=== PATIENT | female | born 1995 | race Caucasian/White ===

== ENCOUNTER 2022-07-31 19:35 | Emergency (ER) | payer OTHER, SELFPAY ==
--- NOTE | ~2022-07-31 | XR_ITS ---
EXAMINATION: XR chest 2V DATE: 07/31/2022 20:25 INDICATION: Shortness of breath TECHNIQUE: PA and lateral views of the chest were obtained. COMPARISON: Chest radiograph dated 03/07/2020 FINDINGS: The lungs remain clear with no focal airspace opacities, pulmonary edema, pleural effusion or pneumot horax. The cardiomediastinal silhouette is normal. Mild thoracic spondylosis. IMPRESSION: 1. No acute cardiopulmonary disease. Reviewed, dictated and finalized at location A.
[2022-07-31 19:51] VITALS: BP 144/102; PULSE 104; RESP 20; TEMP 36.5; O2SAT 97
--- NOTE | 2022-07-31 19:56 | ECG_ITS ---
Measurements Intervals [place] Rate: 82 P: 11 AK: 174 QRS: 24 QRSD: 92 T: 39 QT: 335 QTc: 392 Interpretive Statements SINUS RHYTHM LOW QRS VOLTAGE IN PRECORDIAL LEADS INCOMPLETE RIGHT BUNDLE BRANCH BLOCK BASELINE ARTIFACT- II, III, AVR, AVL, AVF, V1-V6 BORDERLINE ECG NO PREVIOUS ECG AVAILABLE FOR COMPARISON Electronically Signed On 08-01-2022 6:50:51 CDT by Raj Ann D.O.
[2022-07-31 22:16] LABS: Basophils Absolute Auto 0.1 K/mm3 (0.0-0.1); Basophils Percent Auto 0.6 % (0.2-1.2); Eosinophils Absolute Auto 0.4 K/mm3 (0-0.3); Eosinophils Percent Auto 4.6 % (0-4.4); Hematocrit 41.1 % (37.0-47.0); Hemoglobin 13.5 g/dL (12.0-15.0); Immature Granulocyte Absolute 0.03 K/mm3 (0.00-0.031); Immature Granulocyte Percent A 0.4 % (0-0.5); Lymphocytes Percent Auto 29.2 % (18.3-44.2); Mean Corpuscular HGB Conc 32.8 g/dl (32-36); Mean Corpuscular Hemoglobin 29.5 pg (26-34); Mean Corpuscular Volume 89.7 fl (80-100); Mean Platelet Volume 9.2 fl (7.4-10.4); Monocytes Absolute Auto 0.5 K/mm3 (0.1-0.6); Monocytes Percent Auto 6.1 % (2.6-8.5); Neutrophils Absolute Auto 4.9 K/mm3 (1.3-6.7); Neutrophils Percent Auto 59.1 % (45.5-73.1); Platelet Count Result 358 k/mm3 (150-375); Red Blood Count 4.58 M/mm3 (4.2-5.4); Red Cell Distribution Width 12.8 % (11.5-14.5); White Blood Count 8.2 K/mm3 (4.5-10.0)
[2022-07-31 22:24] LABS: Alanine Aminotransferase 22 U/L (6-35); Albumin Level 4.7 g/dL (3.5-5.1); Alkaline Phosphatase 75 U/L (38-126); Anion Gap 4 mmol/L (8-16); Aspartate Amino Transferase 32 U/L (14-36); Bilirubin,Total 0.6 mg/dL (0.2-1.3); Blood Urea Nitrogen 12 mg/dL (7-17); Calcium 8.6 mg/dL (8.4-10.2); Carbon Dioxide 27 mmol/L (22-30); Chloride 105 mmol/L (98-107); Estimated CRCL calculation 207 ml/min; Estimated Glomerular Filt Rate > 60; Glucose 106 mg/dL (65-110); Potassium 4.1 mmol/L (3.4-5.0); Sodium 136 mmol/L (137-145)
[2022-07-31 22:57] VITALS: BP 158/103; PULSE 92; RESP 20; TEMP 36.2; O2SAT 95
[2022-08-01] VITALS (17 sets, daily range): BP systolic 108–152; BP diastolic 75–102; PULSE 80–86; RESP 18–22; O2SAT 93–96
--- NOTE | 2022-08-01 01:14 | PC.NURSE ---
Covid and flu swab completed and sent to lab
[2022-08-01] MEDS: IPRATROPIUM BR 0.02% INH SOLN 0.5 MG/2.5 ML VIAL INHALATION (01:21)
[2022-08-01] MEDS: ALBUTEROL SULFATE NEB 2.5 MG/3 ML INH 5 MG INHALATION (01:21)
[2022-08-01] MEDS: methylPREDNISolone SOD SUCC 125 MG VIAL IV PUSH (01:29)
--- NOTE | 2022-08-01 01:48 | ED.SOB ---
HPI - SOB/Dyspnea General Chief Complaint: Shortness of Breath/Dyspnea Stated Complaint: SOB Time Seen by Provider: 08/01/22 01:05 Source: patient Mode of arrival: ambulatory Limitations: no limitations History of Present Illness HPI Narrative: This is a 26 year old female that presents to the ER for cold symptoms present over the last couple of days. Reports fever, cough, congestion. Reports she has started to become short of breath. Denies chest pain. Related Data Allergies Allergy/AdvReac Type Severity Reaction Status Date / Time No Known Allergies Allergy Mild Verified 07/31/22 19:54 Review of Systems Review of Systems: CONSTITUTIONAL: Denies fever CARDIOVASCULAR: Denies chest pain, or edema. RESPIRATORY: Reports cough and dyspnea. All systems reviewed & are unremarkable except as noted in HPI and below PMFSH Past Medical History Medical History (Updated 08/01/22 @ 02:33 by Shayy Palumbo PA-C) Gastroenteritis SBO (small bowel obstruction) Surgical History Surgical History No pertinent past surgical history Family History Family History Grandparent Diabetes mellitus Colon cancer Social History Social History Smoking packs per day: 0.5 Smoking cigarettes per day: 10.0 Years smoked: 6 Smoking pack-years: 3.00 Smoking status: Current every day smoker Tobacco type: cigarettes Second hand tobacco smoke exposure: Yes Alcohol intake: never Substance use: never 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 HEAD: Normocephalic, atraumatic. EYES: EOMI. CHEST: No respiratory distress. Diffuse expiratory wheezing. No rales or rhonchi HEART: Regular rate and rhythm. No murmur heard. Normal peripheral pulses. EXTREMITIES: Normal range of motion. No edema. SKIN: Warm, dry, no rash. NEURO: No focal deficits. Alert and oriented x3. PSYCH: Normal mood and affect Course Vital Signs Vital signs: Vital Signs Temperature 97.7 F 07/31/22 19:51 Pulse Rate 104 H 07/31/22 19:51 Respiratory Rate 20 07/31/22 19:51 Blood Pressure 144/102 H 07/31/22 19:51 Pulse Oximetry 97 07/31/22 19:51 Oxygen Delivery Room Air 07/31/22 19:51 Temperature 97.2 F L 07/31/22 22:57 Pulse Rate 82 08/01/22 01:55 Respiratory Rate 20 08/01/22 01:55 Blood Pressure 135/89 08/01/22 02:01 Pulse Oximetry 95 08/01/22 02:01 Oxygen Delivery Room Air 08/01/22 01:03 MDM - SOB/Dyspnea MDM Narrative Medical decision making narrative: Patient presents to the emergency department for cold symptoms ongoing over the last couple of days. Reporting shortness of breath. Patient noted to be wheezing on arrival. Given nebulizer treatment and steroid with relief. She is afebrile and nontoxic-appearing. CBC metabolic panel without concerning findings. Influenza and COVID swabs are negative. Chest x-ray without acute cardiopulmonary abnormality. Patient was updated on case findings. Will be continued on oral steroids and albuterol as needed. She is to follow-up with primary care doctor. She was given warnings to return to the ER Lab Data Attestation: I reviewed the patient's lab results. Result diagrams: 07/31/22 22:07/31/22 22:01 Labs: Lab Results 07/31/22 07/31/22 08/01/22 Range/Units 22:01 22:01 01:11 WBC 8.2 (4.5-10.0) K/mm3 RBC 4.58 (4.2-5.4) M/mm3 Hgb 13.5 (12.0-15.0) g/dL Hct 41.1 (37.0-47.0) % MCV 89.7 (80-100) fl MCH 29.5 (26-34) pg MCHC 32.8 (32-36) g/dl RDW 12.8 (11.5-14.5) % Plt Count 358 (150-375) k/mm3 MPV 9.2 (7
[2022-08-01 01:53] LABS: Influenza A QL RT-PCR Negative (Negative); Influenza B QL RT-PCR Negative (Negative); SARS-CoV-2 RNA PCR Negative
[2022-08-01] MEDS: ALBUTEROL SULFATE (*SP) INHALER 1 PUFF (02:47)
== END 2022-08-01 03:24 | disposition home or self-care (01) ==
PROVIDERS: Emergency Medicine; Physician Assistant; Emergency Provider Emergency Medicine
DX: J20.9 Acute bronchitis, unspecified (principal); Z20.822 Contact with and (suspected) exposure to COVID-19; F17.210 Nicotine dependence, cigarettes, uncomplicated
CPT/HCPCS: 36415; 71046; 80053; 85025; 87502; 93005; 94640; 96374; 99284; A9270; C9803; J2930; U0003; U0005

== ENCOUNTER 2023-09-27 01:16 | Emergency (ER) | payer OTHER, SELFPAY ==
[2023-09-27 01:21] VITALS: BP 133/99; PULSE 81; RESP 18; TEMP 36.2; O2SAT 98
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
[2023-09-27] MEDS: KETOROLAC 30 MG/ML VIAL (*BKC) IM (01:50)
[2023-09-27] MEDS: ACETAMINOPHEN 500 MG TABLET 1000 MG PO (01:54)
== END 2023-09-27 02:19 | disposition home or self-care (01) ==
PROVIDERS: Emergency Provider Physician Assistant
DX: S09.93XA Unspecified injury of face, initial encounter (principal); F17.210 Nicotine dependence, cigarettes, uncomplicated; Y04.2XXA Assault by strike against or bumped into by another person, initial encounter; Y99.0 Civilian activity done for income or pay
CPT/HCPCS: 96372; 99283; A9270; J1885

== ENCOUNTER 2023-10-12 06:05 | Emergency (ER) | payer OTHER, SELFPAY ==
[2023-10-12 06:09] VITALS: BP 158/99; PULSE 89; RESP 17; TEMP 36.3; O2SAT 98
[2023-10-12 07:13] VITALS: BP 133/89; PULSE 75; RESP 18; O2SAT 98
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
== END 2023-10-12 07:51 | disposition home or self-care (01) ==
PROVIDERS: Emergency Provider Emergency Medicine
DX: S09.93XD Unspecified injury of face, subsequent encounter (principal); F17.210 Nicotine dependence, cigarettes, uncomplicated; Y04.2XXD Assault by strike against or bumped into by another person, subsequent encounter
CPT/HCPCS: 99283